=== PATIENT | male | born 1955 | race Caucasian/White ===

== ENCOUNTER 2020-01-20 07:46 | Observation (INO) | payer MEDICARE, MEDICAID ==
[2020-01-13 13:50] LABS: BASOPHILS # (AUTO) 0.1 X10'3 (0-0.2); BASOPHILS % (AUTO) 0.8 % (0-1); EOSINOPHILS # (AUTO) 0.1 X10'3 (0-0.9); LYMPHOCYTES # (AUTO) 2.3 X10'3 (1.1-4.8); LYMPHOCYTES % (AUTO) 33.2 % (21-51); MEAN CORPUSCULAR HEMOGLOBIN 33.4 PG (27.0-31.0); MEAN CORPUSCULAR HGB CONC 34.4 g/dL (33.0-36.5); MEAN PLATELET VOLUME 10.5 FL (7.4-10.4); MONOCYTES # (AUTO) 0.5 X10'3 (0-0.9); MONOCYTES % (AUTO) 6.9 % (2-12); NEUTROPHILS % (AUTO) 58.1 % (42-75); PRE OP HEMATOCRIT 46.8 % (42.0-52.0); PRE OP HEMOGLOBIN 16.1 g/dL (14.0-17.9); PRE OP PLATELET COUNT 141 X10'3 (140-440); RED BLOOD COUNT 4.83 X10'6 (4.70-6.10); RED CELL DISTRIBUTION WIDTH 13.7 % (11.5-14.5)
[2020-01-13 13:56] LABS: PRE OP INR 1.1 INR; PRE OP PROTIME 10.8 SECONDS (9.0-12.0)
[2020-01-13 13:57] LABS: ALBUMIN 4.4 G/DL (3.4-5.0); ALBUMIN/GLOBULIN RATIO 1.4 (1.1-1.5); ALKALINE PHOSPHATASE 77 IU/L (46-116); BLOOD UREA NITROGEN 19 MG/DL (7-18); BUN/CREATININE RATIO 13.7 (5.4-32.0); CHLORIDE 103 MMOL/L (99-107); CREATININE 1.39 MG/DL (0.60-1.10); PRE OP ALT 58 U/L (30-65); PRE OP ANION GAP 7 (8-16); PRE OP AST 43 U/L (10-37); PRE OP BILIRUB, TOTAL 0.5 MG/DL (0.0-1.0); PRE OP GLUCOSE 127 MG/DL (70-104); PRE OP POTASSIUM 3.7 MMOL/L (3.4-5.1); PRE OP SODIUM 139 MMOL/L (135-145); TOTAL CARBON DIOXIDE 29.2 MMOL/L (24-32); TOTAL PROTEIN 7.5 G/DL (6.4-8.2); eGFR 52 ML/MIN
[2020-01-13 15:35] LABS: LARGE PLATELETS FEW; PLATELET ESTIMATE NORMAL
[~2020-01-20] VITALS: Ht 182.9 cm; Wt 127.0 kg
[2020-01-20] VITALS (17 sets, daily range): BP systolic 84–146; BP diastolic 44–75
[~2020-01-20 07:46] MED LIST: BACL-11 PO; CYAN-51 PO; DOCUMENT DATE & TIME OF BETA-BLOCKER PO ONE; ESCI5TAB PO; FLO0.4C PO; FLUT16SP26; GABA-530 PO; HCTZ25T PO; HYDR-4383 PO; METF500T PO; METO25TA6 PO; NAPR-1154 PO; SIMV-42 PO; famotidine 20mg tablet PO ONE
[2020-01-20] MEDS ORDERED: ceFAZolin inj. 3,000 MG in normal saline 100ml IV soln 100 ML IV ONE (08:00)
[2020-01-20] MEDS: ringers solution, lacted 1,000 ML IV SCH ×2 (08:28→15:00)
[2020-01-20] MEDS ORDERED: fentaNYL/PF 50MCG/1 ML 2ML syringe ONE (10:48)
[2020-01-20] MEDS ORDERED: MIDAZolam 5mg/5ml vial ONE (10:49)
[2020-01-20] MEDS ORDERED: ringers solution, lacted 1,000 ML IV SCH (11:46)
[2020-01-20] MEDS ORDERED: morphine 2 MG/ML inj. syringe IV PRN (11:50)
[2020-01-20] MEDS ORDERED: morphine 4 MG/ML inj SYRINge IV PRN (11:50)
[2020-01-20] MEDS ORDERED: ondansetron/PF 4mg/2ml inj IV PRN ×2 (11:50→12:25)
[2020-01-20] MEDS ORDERED: proCHLORperazine 10 MG/2 ml inj IV PRN ×2 (11:50→12:25)
[2020-01-20] MEDS ORDERED: meperidine/PF 25mg/ml syringe IV PRN ×3 (11:50)
--- NOTE | 2020-01-20 12:22 | NUR ---
Received from OR via SURGICAL BED , accompanied by Anesthesiologist JENNY and report given by Anesthesiolgist. PATIENT WITH TEDS ON BILATERALLY, BEGUM CATHETER 3 WAY IRRIGATION, DENIES PAIN, SENSATION LEVEL AT T12. PATIENT VSS. Addendum: 01/20/20 at 1243 by Uday Reddy RN, RN Amended: Links added.
[2020-01-20] MEDS ORDERED: zolpidem 5mg tablet PO PRN (12:25)
[2020-01-20] MEDS ORDERED: dextrose ORAL solution 15 GM/59 ML bottle PO PRN ×2 (12:25)
[2020-01-20] MEDS ORDERED: oxybutynin 5mg tablet PO PRN (12:25)
[2020-01-20] MEDS ORDERED: insulin Lispro (HumaLOG) vial - multi-dose SQ SCH (12:25)
[2020-01-20] MEDS ORDERED: acetaminophen 325mg tablet PO PRN (12:25)
[2020-01-20] MEDS ORDERED: mag hydrox/Alum hydrox/simeth 30ml oral suspension PO PRN (12:25)
[2020-01-20] MEDS ORDERED: dextrose 50%-water 50ml dispensing syringe IV PRN ×2 (12:25)
[2020-01-20] MEDS ORDERED: glucagon, human recombinant 1mg kit SUBCUT PRN (12:25)
[2020-01-20] MEDS ORDERED: LIDOcaine 2% 10ml TOPICAL JELLY (Urojet) TP ONE (12:25)
[2020-01-20] MEDS ORDERED: MESSAGE TO PHARMACY PO ONE (12:25)
[2020-01-20] MEDS ORDERED: HYDROcodone/acetaminophen 10/325mg tab PO PRN (12:45)
--- NOTE | 2020-01-20 13:42 | NUR ---
ALL CRITERIA FOR DC TO THE FLOOR HAS BEEN ACHIEVED. 2 RAILS UP. BED LOW, CALL LIGHT PRESENT. GAVE REPORT TO JAY RAMIREZ RN . PAIN AT A TOLERABLE LEVEL AT THIS TIME 2' SPINAL ANESTHESIA. DRESSINGS CDI. CARE TURNED OVER TO RN. VSS. JAY RAMIREZ PRESENT TO ACCEPT AND ASSIST IN SET UP OF VS. WALKER, GLASSES, CPAP AND 2 BAGS OF BELONGINGS PRESENT. Addendum: 01/20/20 at 1404 by Uday Reddy RN, RN Amended: Links added.
[2020-01-20] MEDS: potassium cl 20mEq in 1/2 NS 1,000 ML IV SCH ×2 (15:16→20:22)
[2020-01-20] MEDS ORDERED: ceFAZolin inj. 1,000 MG in dextrose 5%-water 50ml 50 ML IV SCH (16:00)
[2020-01-20] MEDS: baclofen 10mg tablet PO SCH ×2 (16:13→23:17)
[2020-01-20] MEDS: gabapentin 300mg capsule PO SCH ×2 (16:13→23:17)
--- NOTE | 2020-01-20 18:25 | NUR ---
Problems reprioritized. Patient report given, questions answered & plan of care reviewed with serena shiekh.
[2020-01-20] MEDS: tamsulosin 0.4mg capsule PO SCH (19:23)
[2020-01-20] MEDS: metoprolol tartrate 25mg tablet PO SCH (19:23)
[2020-01-20] MEDS: docusate sod 100mg capsule PO SCH (19:23)
[2020-01-20] MEDS ORDERED: atorvastatin 10mg tablet PO SCH (21:00)
[2020-01-20] MEDS ORDERED: insulin glargine (Lantus) pen - multi-dose SQ SCH (21:00)
[2020-01-20] MEDS: ceFAZolin 1GM/D5W- ADD-VANTAGE 50 ML IV SCH (23:18)
[2020-01-21] VITALS: BP 110/65
[2020-01-21] MEDS: ringers solution, lacted 1,000 ML IV SCH ×2 (01:00→09:31)
[2020-01-21] MEDS: potassium cl 20mEq in 1/2 NS 1,000 ML IV SCH ×2 (04:22→09:32)
[2020-01-21 05:11] LABS: BASOPHILS % (AUTO) 0.4 % (0-1); EOSINOPHILS # (AUTO) 0.1 X10'3 (0-0.9); EOSINOPHILS % (AUTO) 1.2 % (0-6); HEMOGLOBIN 14.9 g/dl (14.0-17.9); LYMPHOCYTES # (AUTO) 2.3 X10'3 (1.1-4.8); LYMPHOCYTES % (AUTO) 26.1 % (21-51); MEAN CORPUSCULAR HEMOGLOBIN 33.1 PG (27.0-31.0); MEAN CORPUSCULAR HGB CONC 33.8 g/dL (33.0-36.5); MEAN CORPUSCULAR VOLUME 97.9 FL (78-98); MEAN PLATELET VOLUME 9.9 FL (7.4-10.4); MONOCYTES # (AUTO) 0.6 X10'3 (0-0.9); MONOCYTES % (AUTO) 7.1 % (2-12); NEUTROPHILS # (AUTO) 5.7 X10'3 (1.8-7.7); NEUTROPHILS % (AUTO) 65.2 % (42-75); PLATELET COUNT 119 X10'3 (140-440); RED BLOOD COUNT 4.49 X10'6 (4.70-6.10); WHITE BLOOD COUNT 8.8 X10'3 (4.5-11.0)
[2020-01-21 05:28] LABS: ALBUMIN 3.2 G/DL (3.4-5.0); ANION GAP 6 (8-16); BLOOD UREA NITROGEN 13 MG/DL (7-18); BUN/CREATININE RATIO 9.8 (5.4-32.0); CALCIUM 8.5 MG/DL (8.5-10.1); CHLORIDE 107 MMOL/L (99-107); CREATININE 1.32 MG/DL (0.60-1.10); GLUCOSE 120 MG/DL (70-104); SODIUM 142 MMOL/L (135-145); TOTAL CARBON DIOXIDE 29.4 MMOL/L (24-32); eGFR 55 ML/MIN
[2020-01-21 07:30] VITALS: BP 120/70
[2020-01-21] MEDS ORDERED: pantoprazole 40mg Tablet.DR PO SCH (07:30)
[2020-01-21] MEDS: ceFAZolin 1GM/D5W- ADD-VANTAGE 50 ML IV SCH (07:48)
[2020-01-21] MEDS: docusate sod 100mg capsule PO SCH (07:49)
[2020-01-21] MEDS: tamsulosin 0.4mg capsule PO SCH (07:50)
[2020-01-21] MEDS: baclofen 10mg tablet PO SCH (07:51)
[2020-01-21] MEDS: metoprolol tartrate 25mg tablet PO SCH (07:52)
[2020-01-21] MEDS: gabapentin 300mg capsule PO SCH (07:52)
[2020-01-21] MEDS ORDERED: HYDROchlorothiazide 25mg tablet PO SCH (08:00)
[2020-01-21] MEDS ORDERED: ESCITALOPRAM OXALATE 5 MG TABLET PO SCH (08:00)
[2020-01-21] MEDS ORDERED: metFORMIN 500mg tablet PO SCH (08:00)
[2020-01-21] MEDS ORDERED: fluticasone nasal spray 16GM bottle NS SCH (08:00)
[2020-01-21] MEDS ORDERED: DOCU-148 PO (10:11)
[2020-01-21 11:36] VITALS: BP 134/67
--- NOTE | 2020-01-21 12:43 | NUR ---
PT DISCHARGED IN STABLE CONDITION. LEFT IN PRIVATE VEHICLE. BEGUM CATHETER IN PLACE, EDUCATION GIVEN. BEGUM SUPPLIES GIVEN, ALL QUESTIONS ANSWERED. IV DC CANULA INTACT. FOLLOW UP APPT MADE BY DR BARR. ALL BELONGINGS IN HAND UPON DC.
== END 2020-01-21 12:05 | disposition home or self-care (01) ==
LOC: PAS 07:46 → SUR 3N 12:22
PROVIDERS: ADMIT Urology; ATTEND Urology
DX: Z03.818 Encounter for observation for suspected exposure to other biological agents ruled out (principal); N32.0 Bladder-neck obstruction; N40.1 Benign prostatic hyperplasia with lower urinary tract symptoms
CPT/HCPCS: 36415; 52601; 71046; 80048; 80053; 82948; 83036; 85025; 85610; 85730; 86885; 86900; 86901; 96365; 96366; G0378; J0690; J1815; J2250; J3010; J7060; U0003; A4346; A4355; A4615; J3480; J7120

== ENCOUNTER 2021-06-10 05:24 | Day surgery (SDC) | payer MEDICARE, MEDICAID ==
[2021-06-03 12:21] LABS: BASOPHILS % (AUTO) 0.7 % (0-1); EOSINOPHILS # (AUTO) 0.1 X10'3 (0-0.9); EOSINOPHILS % (AUTO) 1.2 % (0-6); LYMPHOCYTES # (AUTO) 2.1 X10'3 (1.1-4.8); LYMPHOCYTES % (AUTO) 30.5 % (21-51); MEAN CORPUSCULAR HEMOGLOBIN 33.6 PG (27.0-31.0); MEAN CORPUSCULAR HGB CONC 34.4 g/dL (33.0-36.5); MEAN CORPUSCULAR VOLUME 97.7 FL (78-98); MEAN PLATELET VOLUME 9.2 FL (7.4-10.4); MONOCYTES # (AUTO) 0.5 X10'3 (0-0.9); MONOCYTES % (AUTO) 7.3 % (2-12); NEUTROPHILS # (AUTO) 4.3 X10'3 (1.8-7.7); NEUTROPHILS % (AUTO) 60.3 % (42-75); PRE OP HEMATOCRIT 43.8 % (42.0-52.0); PRE OP HEMOGLOBIN 15.1 g/dL (14.0-17.9); PRE OP PLATELET COUNT 148 X10'3 (140-440); RED BLOOD COUNT 4.49 X10'6 (4.70-6.10); RED CELL DISTRIBUTION WIDTH 16.6 % (11.5-14.5)
[2021-06-03 12:27] LABS: CHLORIDE 106 MMOL/L (99-107)
[2021-06-03 12:45] LABS: ALBUMIN 3.9 G/DL (3.4-5.0); ALKALINE PHOSPHATASE 84 IU/L (46-116); BLOOD UREA NITROGEN 11 MG/DL (7-18); BUN/CREATININE RATIO 11.1 (5.4-32.0); CREATININE 0.99 MG/DL (0.60-1.10); PRE OP ALT 29 U/L (30-65); PRE OP ANION GAP 7 (8-16); PRE OP AST 17 U/L (10-37); PRE OP BILIRUB, TOTAL 0.4 MG/DL (0.0-1.0); PRE OP GLUCOSE 107 MG/DL (70-104); PRE OP POTASSIUM 3.8 MMOL/L (3.4-5.1); PRE OP SODIUM 143 MMOL/L (135-145); TOTAL CARBON DIOXIDE 29.6 MMOL/L (24-32); TOTAL PROTEIN 7.8 G/DL (6.4-8.2); eGFR 76 ML/MIN
[~2021-06-10] VITALS: Ht 182.9 cm; Wt 121.0 kg
[2021-06-10] VITALS (8 sets, daily range): BP systolic 93–123; BP diastolic 52–71
[~2021-06-10 05:24] MED LIST changes: -DOCUMENT DATE & TIME OF BETA-BLOCKER PO ONE; -HCTZ25T PO; +HYDR25TA5 PO; +LOP25T PO; -METO25TA6 PO; -NAPR-1154 PO; -famotidine 20mg tablet PO ONE
[2021-06-10] MEDS ORDERED: famotidine 20mg tablet PO ONE (05:30)
[2021-06-10] MEDS ORDERED: ringers solution, lacted 1,000 ML IV SCH (05:30)
[2021-06-10] MEDS ORDERED: DOCUMENT DATE & TIME OF BETA-BLOCKER PO ONE (05:30)
[2021-06-10] MEDS ORDERED: ceFAZolin inj. 3,000 MG in normal saline 100ml IV soln 100 ML IV ONE (05:30)
[2021-06-10] MEDS ORDERED: BUPIVAcaine/PF 2.5mg/ml (0.25%) 10ml vial ONE (07:02)
[2021-06-10] MEDS ORDERED: LIDOcaine 0.5% (5mg/ml) 50ml vial ONE (07:23)
[2021-06-10] MEDS ORDERED: fentaNYL/PF 50MCG/1 ML 2ML syringe ONE (07:30)
[2021-06-10] MEDS ORDERED: midazolam 1 mg/ML 2ml injection ONE (07:30)
--- NOTE | 2021-06-10 08:07 | NUR ---
Received from OR via BENY IN STABLE CONDITION , accompanied by Anesthesiologist and PARACHUTE PANEL JOINER report given by PARACHUTE PANEL JOINER AND Anesthesiolgist. Addendum: 06/10/21 at 0843 by Sonal Soto RN Amended: Links added.
--- NOTE | 2021-06-10 09:17 | NUR ---
PATIENT DISCHARGED FROM PACU IN STABLE CONDITION AFTER WRITTEN AND VERBAL DISCHARGE INSTRUCTIONS GIVEN. PATIENT GAVE A VERBAL UNDERSTANDING OF INSTRUCTIONS GIVEN. PATIENT LEFT FACILITY VIA WHEELCHAIR WITH RN. Addendum: 06/10/21 at 0934 by Sonal Soto RN Amended: Links added.
== END 2021-06-10 09:17 | disposition home or self-care (01) ==
LOC: PAS 05:24
PROVIDERS: ATTEND Orthopaedic Surgery Hand Surgery
DX: G56.01 Carpal tunnel syndrome, right upper limb (principal); J44.9 Chronic obstructive pulmonary disease, unspecified; G47.33 Obstructive sleep apnea (adult) (pediatric); M10.9 Gout, unspecified; F32.9 Major depressive disorder, single episode, unspecified; E11.40 Type 2 diabetes mellitus with diabetic neuropathy, unspecified; I25.2 Old myocardial infarction; I10 Essential (primary) hypertension; G89.29 Other chronic pain; N40.0 Benign prostatic hyperplasia without lower urinary tract symptoms; I25.10 Atherosclerotic heart disease of native coronary artery without angina pectoris; F17.210 Nicotine dependence, cigarettes, uncomplicated; Z79.899 Other long term (current) drug therapy; Z95.1 Presence of aortocoronary bypass graft; Z98.890 Other specified postprocedural states; Z20.822 Contact with and (suspected) exposure to COVID-19
CPT/HCPCS: 36415; 64721; 80053; 82948; 85025; 87635; C9803; J0690; J2001; J2250; J3010; J3490; Z7506; Z7512; A4215; A6449; J7120